=== PATIENT | female | born 1970 | race Caucasian/White ===

== ENCOUNTER → 2020-07-19 | Outpatient (CLI) | payer MEDICARE, OTHER ==
[~2020-07-19] MED LIST: AMPHETAMINE SAL15 MG PO; AUGMENTIN 875-1 EACH PO; BUPROPION HCL100 MG PO; BUSPIRONE HCL30 MG PO; CHANTIX1 MG PO; CYANOCOBAL1000 MCG/1 INJ; FLUOXETINE HCL20 MG PO; FOLIC ACID0.4 MG PO; IBUPROFEN600 MG PO; ISOSORBIDE MONO30 MG PO; KLONOPIN TAB 00.5 MG PO; LATUDA40 MG PO; LISINOPRIL20 MG PO; MACROBID 100 M100 MG PO; MYRBETRIQ50 MG PO; NITROSTAT0.4 MG SL; NORCO 5-325 TA1 EACH PO; NORVASC 5 MG TAB5 MG PO; SYMBICORT 160-1 INHA INH; VENTOLIN HFA 66.7 GM INH; VESICARE10 MG PO; VIIBRYD20 MG PO; VISTARIL25 MG PO; VITAMIN B-121000 MCG PO; VITAMIN B-122500 MCG SL; VITAMIN D250000 UNIT PO
== END ==
LOC: KOH-I 06-22 10:00
DX: G43.909 Migraine, unspecified, not intractable, without status migrainosus (principal); G47.30 Sleep apnea, unspecified; R42 Dizziness and giddiness; R55 Syncope and collapse
CPT/HCPCS: 70450